=== PATIENT | male | born 1970 | race Two or more races ===

== ENCOUNTER 2017-11-01 10:42 | Outpatient (CLI) | payer OTHER | END 2017-11-01 10:44 | disposition home or self-care (01) | LOC: SONOGRAMA 10:42 | DX: R10.84 Generalized abdominal pain (principal); Z86.19 Personal history of other infectious and parasitic diseases ==

== ENCOUNTER 2018-09-29 08:47 | Outpatient (CLI) | payer OTHER | END 2018-09-29 08:58 | disposition home or self-care (01) | LOC: SONOGRAMA 08:47 | DX: R10.84 Generalized abdominal pain (principal) ==

== ENCOUNTER 2019-10-09 14:37 | Outpatient (CLI) | payer OTHER | END 2019-10-09 14:39 | disposition home or self-care (01) | LOC: RAD 14:37 | PROVIDERS: ATTEND Orthopaedic Surgery | DX: M25.551 Pain in right hip (principal); M25.552 Pain in left hip; M25.562 Pain in left knee; M25.561 Pain in right knee ==

== ENCOUNTER 2021-02-04 07:52 | Outpatient (CLI) | payer OTHER | END 2021-02-04 08:19 | disposition home or self-care (01) | LOC: MRI 07:52 | PROVIDERS: ATTEND Orthopaedic Surgery | DX: M25.561 Pain in right knee (principal); M25.562 Pain in left knee; M25.551 Pain in right hip; M25.552 Pain in left hip | CPT/HCPCS: 73721 ==

== ENCOUNTER 2021-12-24 07:19 | Emergency (ER) | payer OTHER ==
[~2021-12-24] VITALS: Ht 172.7 cm; Wt 84.8 kg
[2021-12-24] MEDS ORDERED: EC-NAPROSYN375 MG PO (09:51)
== END 2021-12-24 09:57 | disposition home or self-care (01) ==
LOC: ER 07:19
DX: M77.8 Other enthesopathies, not elsewhere classified (principal)

== ENCOUNTER 2023-03-02 17:32 | Emergency (ER) | payer OTHER ==
[~2023-03-02] VITALS: Ht 172.7 cm; Wt 83.0 kg
[~2023-03-02 17:32] MED LIST: EC-NAPROSYN375 MG PO
[2023-03-02 18:44] LABS: HEMATOCRIT 37.9 % (39.0-48.0); HEMOGLOBIN 11.6 g/dL (13-16.00); MEAN CORPUSCULAR HEMOGLOBIN 21.5 pg (27.00-32.0); MEAN CORPUSCULAR HGB CONC 30.8 g/dl (32.0-36.0); PLATELET COUNT 428 K/uL (150-450); RED BLOOD COUNT 5.43 M/uL (4.00-6.00); RED CELL DISTRIBUTION WIDTH 19.2 % (11.5-14.5)
[2023-03-02 18:45] LABS: MEAN CELL VOLUME 69.8 fL (80.0-100.00)
[2023-03-02 19:05] LABS: ALBUMIN 3.3 gm/dL (3.4-5.0); BILIRUBIN TOTAL 0.22 mg/dL (0.3-1.2); CALCIUM 8.4 mg/dL (8.5-10.1); CREATININE SERUM 1.04 mg/dL (0.70-1.30); GFR 74.99; GLOBULINA 4.1 G/DL (2.4-3.5); POTASSIUM 4.25 mEq/L (3.5-5.1); TOTAL PROTEIN 7.4 gm/dL (6.4-8.2)
[2023-03-02] MEDS ORDERED: MECLIZINE HCL25 MG PO (20:45)
== END 2023-03-02 21:45 | disposition home or self-care (01) ==
LOC: ER 17:32
PROVIDERS: General Practice
DX: R42 Dizziness and giddiness (principal); R11.2 Nausea with vomiting, unspecified

== ENCOUNTER 2025-02-25 08:00 | Outpatient (CLI) | payer OTHER ==
[~2025-02-25] VITALS: Ht 172.7 cm; Wt 83.9 kg
[~2025-02-25 08:00] MED LIST changes: +MECLIZINE HCL25 MG PO
[2025-02-25 08:37] LABS: BASO % 0.9 % (0.1-1.2); EOS # 0.14 (0.04-0.54); EOS % 1.9 % (0.7-7.0); LYMPH # 2.64 (1.18-3.74); LYMPH % 35.8 % (19.3-53.1); MEAN PLATELET VOLUME 10.80 fl (9.4-12.4); MONO # 0.82 (0.24-0.82); MONO % 11.1 % (4.7-12.5); NEUT # 3.68 (1.56-6.13); NEUT % 50.0 % (34.0-71.1); RED CELL DISTRIBUTION WIDTH 14.6 % (11.6-14.4)
[2025-02-25 08:44] LABS: URINE APPEARANCE Clear; URINE BILIRRUBIN Negative (NEGATIVE); URINE BLOOD Trace; URINE COLOR Yellow; URINE KETONE Negative (NEGATIVE); URINE LEUKOCYTE Negative; URINE NITRATE Negative; URINE PROTEIN Negative (NEGATIVE); URINE UROBILINOGEN 1.0 E.U./dl
[2025-02-25 08:45] LABS: URINE EPITHELIAL CELLS 1.6 uL (0.0-38.8); URINE RBC 6.1 uL (0.0-20.8); URINE WBC 3.9 uL (0.0-23.2)
[2025-02-25 08:58] VITALS: BP 119/81
[2025-02-25] MEDS ORDERED: PROTONIX20 MG (08:59)
[2025-02-25] MEDS ORDERED: TOPROL XL25 M1 (08:59)
[2025-02-25] MEDS ORDERED: PLAVIX75 MG (08:59)
[2025-02-25] MEDS ORDERED: JARDIANCE10 MG (09:00)
[2025-02-25] MEDS ORDERED: ATORVALIQ20 MG/5 ML (09:00)
[2025-02-25] MEDS ORDERED: ENTRESTO 49 MG1 EACH PO (09:00)
[2025-02-25 09:02] LABS: INR 1.09
[2025-02-25 09:11] LABS: ALT/SGPT 41.0 U/L (12-78); AST/SGOT 19.0 U/L (15-37); BILIRUBIN TOTAL 0.61 mg/dL (0.3-1.2); BUN CREA RATIO 14.0 (7.0-25.0); CREATININE SERUM 0.92 mg/dL (0.70-1.30); GFR 85.73; GLOBULINA 3.0 G/DL (2.4-3.5); GLUCOSE FASTING 95.0 mg/dL (65-100); OSMOLALITY SERUM 281.0 MOSM/KG (275-295)
[2025-02-25 09:52] LABS: URINE BACTERIA 3.5 uL (0.0-1933); URINE CAST 0.00 uL (0.0-1.40); URINE GLUCOSE >=1000 MG/DL (NEGATIVE)
== END 2025-02-28 08:10 | disposition home or self-care (01) ==
LOC: RAD 08:00 → CIR.AMB 03-03 07:00 → EDSTATUS 03-03 07:30
PROVIDERS: ATTEND Surgery
DX: K43.9 Ventral hernia without obstruction or gangrene (principal)